=== PATIENT | female | born 1930 | race Caucasian/White ===

== ENCOUNTER → 2018-11-30 12:23 | Outpatient (CLI) | payer MEDICARE, BC ==
--- NOTE | ~2018-11-30 | EC ---
PATIENT:JORDY MCNAIR DATE OF SERVICE: 11/30/18 SEX: F MEDICAL RECORD: [id number] DATE OF : 34 LOCATION:[facility] AGE OF PATIENT: 88 ADMISSION DATE: 11/30/18 REFERRING PHYSICIAN: INTERPRETING PHYSICIAN: CLARITA CASTANEDA MD ECHOCARDIOGRAM REPORT ECHO CHARGES 4 ECHO COMPLETE Date: 11/30/18 CLINICAL DIAGNOSIS: MITRAL REGURG, DYSPNEA W/ EXERTION, ANGINA ECHOCARDIOGRAPHIC MEASUREMENTS (adult normal given) AC root (d.<3.7cm) 2.8 cm LV Septum d (<1.2 cm> 1.0 cm Valve Excursion 1.2 cm LV Septum (systole) 1.2 cm Left Atria (s.<4.0cm> 3.3 cm LVPW d(<1.2cm) 1.3 cm RV (d.<2.3cm) 3.8 cm LVPW (sytole) 1.5 cm LV diastole(<5.6CM) 3.3 cm MV E-F(>70mm/sec) cm LV systole 2.1 cm LVOT Diameter 1.5 cm MV exc.(>10mm) 1.2 cm Est.ejection fraction (50-75%) % DOPPLER: LVIT cm/sec A 90.0 cm/sec E 108 cm/sec LA cm/sec RVSP 52 mmHg LVOT 124 cm/sec AOP1/2T m/s Asc. Ao 134 cm/sec RVOT 60 cm/sec RA cm/sec PA 84 cm/sec AV Gradient Peak 7.18 mmHg AV Mean 3.07 mmHg AV Area 1.7 cm MV Gradient Peak 7.98 mmHg MV Mean 2.79 mmHg MV Area cm COMMENTS: Strainer Tender: 2 DORENE LEBLANC [employer]: 1 Dr. Castaneda TAPE# PACS Pericardial Effusion N DATE OF SERVICE: FINDINGS: 1. Left ventricular chamber size is within normal limits. Left ventricular systolic function is normal. Overall ejection fraction estimated at 65%. 2. Left atrium is within normal limits at 3.3 cm. Right atrium and right ventricular chamber sizes are mildly dilated. 3. Valvular structures have normal structure and motion. 4. Doppler interrogation reveals moderate mitral regurgitation, moderate tricuspid regurgitation, no other valvular insufficiency or stenosis, but ECHOCARDIOGRAM REPORT [id number] JORDY MCNAIR pulmonary systolic pressure is elevated estimated at 52 mmHg. 5. No evidence of pericardial effusion or left ventricular thrombus. TRANSINT:[id number] Voice Confirmation ID: [id number] DOCUMENT ID: [id number] CLARITA CASTANEDA MD CC: [id number] DICTATION DATE: 12/01/18841 TITLE I DIRECTOR: 12/01/18 1018 [facility] CLI 11/30/18 [place] [id number] [place] [id number]
== END | disposition home or self-care (01) ==
LOC: D.HCCARDIO 12:23
PROVIDERS: ATTEND Internal Medicine Interventional Cardiology
DX: I05.9 Rheumatic mitral valve disease, unspecified (principal)

== ENCOUNTER → 2018-12-01 08:57 | Outpatient (CLI) | payer MEDICARE, BC ==
--- NOTE | ~2018-12-01 | ST ---
PATIENT:JORDY MCNAIR MEDICAL RECORD: [id number] SEX: F LOCATION:[facility] ORDER #: ADMISSION DATE: 12/01/18 AGE OF PATIENT: 88 REFERRING PHYSICIAN: INTERPRETING PHYSICIAN: CLARITA HUGHES MD DATE OF SERVICE: 12/01/2018 PROCEDURE: Nuclear stress test. INDICATION: Angina, shortness of breath. She was exercised on standard Lexiscan protocol with 31 mCi of sestamibi injected at peak stress, 11 mCi were used previously for rest images. FINDINGS: Gated SPECT reveals preserved ejection fraction at 86% with good wall motion and thickening and brightening throughout all segments. SPECT imaging Cardiolite was used as myocardial fusion agent. There is homogeneous uptake throughout all segments at rest and stress with no evidence of inducible ischemia or previous infarction. OVERALL IMPRESSION: 1. This is a normal nuclear stress test with no evidence of inducible ischemia or previous infarction. 2. Gated SPECT reveals a preserved ejection fraction at 86%. In this patient with ongoing symptomatology, the current scan does not suggest the presence of hemodynamically significant coronary artery disease. Evaluate noncardiac etiology of chest pain. TRANSINT:[id number] Voice Confirmation ID: [id number] DOCUMENT ID: [id number] CLARITA HUGHES MD CC: [id number] DICTATION DATE: 12/01/18 1608 INDUSTRIAL CUSTODIAN: 12/02/18 0709 [facility] CLI 12/01/18 [place] [id number] [place] [address]
== END | disposition home or self-care (01) ==
LOC: D.HCCARDIO 08:57
PROVIDERS: ATTEND Internal Medicine Interventional Cardiology
DX: I20.9 Angina pectoris, unspecified (principal)